=== PATIENT | male | born 1960 | race Caucasian/White ===

== ENCOUNTER 2019-04-17 18:49 | Emergency (ER) | payer SELFPAY ==
[~2019-04-17] VITALS: Ht 175.3 cm; Wt 95.0 kg
[2019-04-17 18:53] VITALS: Ht 175.3 cm; Wt 95.0 kg
[2019-04-17] MEDS ORDERED: KETOROLAC 30 MG INJ IM STA (18:58)
[2019-04-17] MEDS ORDERED: IBUP-1542 PO (18:59)
[2019-04-17] MEDS ORDERED: LORAZEPAM 1 MG TAB PO ONE (19:00)
[2019-04-17 19:47] VITALS: BP 139/82; PULSE 81; RESP 20
--- NOTE | 2019-04-17 22:55 | ERD ---
ER Documentation Chief Complaint Chief Complaint bib ra from street for shoulder pain, homeless, needs food HPI 58-year-old man admits to using methamphetamine and is agitated. He was brought in by EMS for complaints of agitation and transported here without further complications. Patient states he feels nervous after using methamphetamine and does have a drug abuse history but states he used many years ago and at that time used to use heroin. He denies suicidal homicidal ideation, no fevers or chills, no chest pain or shortness of breath. ROS All systems reviewed and are negative except as per history of present illness. Medications Home Meds Active Scripts Ibuprofen* (Motrin*) 600 Mg Tab, 600 MG PO Q8 PRN for PAIN AND/OR INFLAMMATION, #30 TAB Prov:BRAVO PATTON MD 04/17/19 Allergies Allergies: Coded Allergies: No Known Allergy (Unverified , 04/17/19) PMhx/Soc Medical and Surgical Hx: pt denies Medical Hx Hx Psychiatric Problems: Yes (depression, drug use ) Hx Alcohol Use: Yes Hx Substance Use: Yes (meth ) Hx Tobacco Use: No Smoking Status: Never smoker FmHx Family History: diabetes Physical Exam Vitals Vital Signs Date Temp Pulse Resp B/P (MAP) Pulse Ox O2 O2 Flow FiO2 Time Delivery Rate 04/17/19 98.9 81 20 139/82 100 Room Air 19:47 (101) 04/17/19 88 20 146/74 100 Room Air 19:29 (98) 04/17/19 98.9 91 20 144/81 100 Room Air 18:59 (102) 04/17/19 98.9 82 19 149/82 100 18:53 (104) Physical Exam Const: No acute distress, agitated, afebrile Resp: Clear to auscultation bilaterally Cardio: Regular rate and rhythm, no murmurs Skin: No petechiae or rashes, no lacerations or hematomas Back: No midline or flank tenderness Ext: No cyanosis, or edema, calves symmetrical Neur: Awake and alert x3, no focal deficits or facial asymmetry Psych: Anxious and agitated Results 24 hrs Current Medications Medications Dose Sig/Ran Start Time Status Last (Trade) Ordered Route PRN Stop Time Admin Dose Reason Admin Ketorolac 30 mg ONCE STAT 04/17/19 DC 04/17/19 Tromethamine IM 18:58 19:15 (Toradol) 04/17/19 18:59 Lorazepam 1 mg ONCE ONCE 04/17/19 DC 04/17/19 (Ativan) PO 19:00 19:16 04/17/19 19:01 Procedures/MDM For complaints of body aches I administered Toradol 30 mg IM x1 and also administered lorazepam 1 mg p.o. for agitation due to methamphetamine abuse. Differential diagnoses considered, included but not limited to acute coronary syndrome, pulmonary embolism, aortic dissection, abdominal aortic aneurysm, sepsis, stroke, meningitis, encephalitis, pneumonia, appendicitis, cholecystitis, bowel obstruction, pyelonephritis, nephrolithiasis, cystitis, as well as metabolic, hematologic, and electrolyte abnormalities. As well as abscess, cellulitis, fractures, and dislocations. Patient feels much better at this time, and vital signs are normal, symptoms have improved. I did give strict instructions to return to the ED if symptoms continue or worsen, patient will otherwise follow-up with primary care pavel redman. Patient understood instructions and agreed to plan. Disclaimer: Inadvertent spelling and grammatical errors are likely due to EHR/dictation software use and do not reflect on the overall quality of patient care. Also, please note that the electronic time recorded on this note does not necessarily reflect the actual time of the patient encounter. Departure Diagnosis: Primary Impression: Methamphetamine abuse Additional Impression: Acute anxiety Condition: Good Patient Instructions: Arthralgia, Drug Abuse BRAVO PATTON MD Apr 17, 2019 22:55
== END 2019-04-17 19:48 | disposition home or self-care (01) ==
LOC: E/R 18:49
DX: F15.10 Other stimulant abuse, uncomplicated (principal); F41.9 Anxiety disorder, unspecified; Z59.0 Homelessness
CPT/HCPCS: 96372; 99284; J1885

== ENCOUNTER 2019-06-11 22:49 | Emergency (ER) | payer OTHER ==
[~2019-06-11] VITALS: Ht 170.2 cm; Wt 100.0 kg
[~2019-06-11 22:49] MED LIST: IBUP-1542 PO
[2019-06-11 22:51] VITALS: Ht 170.2 cm; Wt 100.0 kg
[2019-06-12] MEDS ORDERED: LORAZEPAM 1 MG TAB PO ONE (05:30)
[2019-06-12] MEDS ORDERED: MAGNESIUM SULFATE 2 GM, MULTIVITAMINS 10 ML, THIAMINE 100 MG, FOLIC ACID 1 MG in SOD CH... IV STA (06:08)
--- NOTE | 2019-06-12 07:18 | ERD ---
ER Documentation Chief Complaint Chief Complaint Pt reports back pain and ETOH HPI This is a 58-year-old male with a past medical history of polysubstance abuse including heavy alcohol abuse and methamphetamine abuse, admissions to other hospitals for cellulitis and sepsis who is presenting to the emergency department today for reported exacerbated chronic back pain and alcohol intoxication. The patient admits to drinking beer last night into this morning. He is heavily intoxicated. He endorses falling last night landing on his buttock. He did not hit his head. The patient is sleepy but arousable. He did fall asleep multiple times midsentence during the history taking process. He is able to move all extremities spontaneously. History and physical is limited secondary to patient's clinical condition. History and physical is limited secondary to clinical condition. ROS Limited secondary to clinical condition. Medications Home Meds Active Scripts Ibuprofen* (Motrin*) 600 Mg Tab, 600 MG PO Q8 PRN for PAIN AND/OR INFLAMMATION, #30 TAB Prov:BRAVO PATTON MD 04/17/19 Allergies Allergies: Coded Allergies: No Known Allergy (Unverified , 04/17/19) PMhx/Soc Hx Psychiatric Problems: Yes (depression, drug use ) Hx Miscellaneous Medical Probl: Yes (OSTEOMYELITIS) Hx Alcohol Use: Yes Hx Substance Use: Yes (meth ) Hx Tobacco Use: No Smoking Status: Unknown if ever smoked FmHx Family History: No diabetes Physical Exam Vitals Vital Signs Date Temp Pulse Resp B/P (MAP) Pulse Ox O2 O2 Flow FiO2 Time Delivery Rate 06/12/19 98.7 78 17 153/107 99 Room Air 13:23 (122) 06/12/19 98.8 76 16 169/90 98 Room Air 10:22 (116) 06/12/19 98.8 76 16 173/91 99 Room Air 08:08 (118) 06/12/19 78 16 167/114 100 Room Air 05:26 (131) 06/11/19 98.1 78 16 140/84 97 22:51 (102) Physical Exam Const: No apparent distress, well-developed. Disheveled, unkempt Head: Normocephalic, Atraumatic Eyes: Normal Conjunctiva. Pupils equal, round and reactive to light ENT: Normal External Ears, Nose. Dry mucous membranes. Neck: Full range of motion. No meningismus. Resp: Clear to auscultation bilaterally, No wheezes, rales or rhonchi Cardio: Regular rate and rhythm. No murmurs, rubs or gallops Abd: Soft, non tender, non distended. Normal bowel sounds Skin: No petechiae or rashes Back: No midline tenderness. No CVA tenderness Ext: No cyanosis, or edema. No erythema or induration or warmth to the extremities. Dirt underneath the nails. Neur: Sleepy but arousable. No facial droop. Moves all extremities spontaneously and to command. Normal sensation. Result Diagram: 06/12/19 0751 06/12/19 0750 Results 24 hrs Laboratory Tests Test 06/12/19 07:50 06/12/19 07:51 Sodium Level 140 mmol/L Potassium Level 3.4 mmol/L Chloride Level 106 mmol/L Carbon Dioxide Level 28 mmol/L Anion Gap 6 Blood Urea Nitrogen 8 mg/dl Creatinine 0.51 mg/dl Est Glomerular Filtrat Rate mL/min > 60 mL/min Glucose Level 98 mg/dl Calcium Level 8.7 mg/dl Total Bilirubin 1.4 mg/dl Direct Bilirubin 0.00 mg/dl Indirect Bilirubin 1.4 mg/dl Aspartate Amino Transf (AST/SGOT) 35 IU/L Alanine Aminotransferase (ALT/SGPT) 25 IU/L Alkaline Phosphatase 93 IU/L Total Protein 7.9 g/dl Albumin 3.6 g/dl Globulin 4.30 g/dl Albumin/Globulin Ratio 0.83 Salicylates Level < 1.0 mg/dl Acetaminophen Level < 10.0 ug/ml Ethyl Alcohol Level < 10.0 mg/dl White Blood Count 3.2 10^3/ul Red Blood Count 4.34 10^6/ul Hemoglobin 13.5 g/dl Hematocrit 38.5 % Mean Corpuscular Volume 88.7 fl Mean Corpuscular Hemoglobin 31.1 pg Mean Corpuscular Hemoglobin Concent 35.1 g/dl Red Cell Distribution Width 17.1 % Platelet Count 103 10^3/UL Mean Platelet Volume 10.4 fl Immature Granulocytes % 0.300 % Neutrophils % 49.7 % Lymphocytes % 35.8 % Monocytes % 7.3 % Eosinophils % 6.3 % Basophils % 0.6 % Nucleated Red Blood Cells % 0.0 /100WBC Immature Granulocytes # 0.010 10^3/ul Neutrophils # 1.6 10^3/ul Lymphocytes # 1.1 10^3/ul Monocytes # 0.2 10^3/ul Eosinophils # 0.2 10^3/ul Basophils # 0.0 10^3/ul Nucleated Red Blood Cells # 0.0 10^3/ul Urine Color YELLOW Urine Clarity CLEAR Urine pH 7.0 Urine Specific [place] 1.010 Urine Ketones NEGATIVE mg/dL Urine Nitrite NEGATIVE mg/dL Urine Bilirubin NEGATIVE mg/dL Urine Urobilinogen 2+ mg/dL Urine Leukocyte Esterase NEGATIVE Casey/ul Urine Microscopic RBC 1 /HPF Urine Microscopic WBC 0 /HPF Urine Mucus FEW /HPF Urine Hemoglobin 1+ mg/dL Urine Glucose NEGATIVE mg/dL Urine Total Protein NEGATIVE mg/dl Urine Opiates Screen Negative Urine Barbiturates Negative Urine Amphetamines Screen Positive Urine Benzodiazepines Screen Negative Urine Cocaine Screen Negative Urine Cannabinoids Negative Current Medications Medications Dose Sig/Ran Start Time Status Last (Trade) Ordered Route PRN Stop Time Admin Dose Reason Admin Lorazepam 1 mg ONCE ONCE 06/12/19 DC 06/12/19 (Ativan) PO 05:30 05:11 06/12/19 05:31 Magnesium 1,015.2 ml Q2H2M STAT 06/12/19 DC 06/12/19 Sulfate 2 @ 500 mls/ IV 06:08 08:08 gm/ hr 06/12/19 08:09 Multivitamins 10 ml/Thiamine HCl 100 mg/Folic Acid 1 mg/Sodium Chloride Procedures/MDM MDM The patient's presentation warrants further investigation. Previous medical records, if available, were reviewed. LABS The patient's laboratory testing was obtained and reviewed. No emergent treatment was required unless described below. CBC: Mild not emergent pancytopenia, likely related to alcoholic liver disease. Chemistry: Mild hypokalemia, not emergent. No E/o severe acidosis or alkalosis or renal failure or liver disease or diabetic ketoacidosis Urine: No E/o acute infection or hematuria Tox: No E/o alcohol abuse. UDS is positive for methamphetamines. No E/o salicylate or acetaminophen use. TREATMENT/DISPOSITION The patient presents for intoxication. The patient will require observation until clinical sobriety. The patient has no signs of emergent or symptomatic anemia. The patient does not have any emergent electrolyte or metabolic emergencies. I have decrease suspicion for a thyroid disorder. The patient is not toxic appearing. I have decreased suspicion for an infectious etiology of symptoms. The patient does not have any cardiopulmonary complaints. The patient's pulse remains normal in the emergency department. I do not suspect arrhythmia. The patient is not hypoxic. The patient has no focal deficits. The neurologic exam is reassuring. I have decreased suspicion for cerebral ischemia. There was no evidence of trauma or injury. I have decreased suspicion for ICH. The patient does endorse exacerbated chronic low back pain which she requires a walker for. The patient is ambulatory with his walker currently, at [facility]. There is no evidence of emergent posttraumatic injury. Patient has no step-offs or deformities. I have low suspicion for acute fracture or listhesis. I do not suspect retroperitoneal bleeding. The patient is ambulatory and mobile without difficulty. The patient does not have any saddle anesthesia or any focal deficits. The patient has not been incontinent of urine or stool. The patient has not had any retention of urine or stool. I have low suspicion for spinal cord injury. There is no evidence of sciatica. The patient denies any abdominal pain. The patient does not have any palpable pulsatile masses in the abdomen. I have low suspicion for AAA or aortic aneurysm rupture or dissection. The patient does not have any flank tenderness. The patient does not have any urinary complaints or gross hematuria. I have low suspicion for nephrolithiasis as the etiology of symptoms. The patient does not have any left upper quadrant tenderness radiating to the back. I have low suspicion for pancreatitis. The patient does not have a history of IV drug use. The patient is afebrile. The patient does not have symptoms consistent with an epidural abscess or other infectious etiologies. There are no overlying skin changes. There is no evidence of cellulitis or abscess or another soft tissue infection to the back or extremities. The patient will be given a banana bag given his alcohol intoxication. OBSERVATION Time: At least 4 hours Family Hx: Patient could not provide Evaluation: Multiple exams showed improving symptoms and no evidence of decompensation. At time of discharge, the patient was alert and oriented and ambulatory. DISCHARGE Upon reevaluation of the patient, symptoms have improved. No emergent diagnoses were identified. At this time, I feel that the patient stable for discharge. The patient was instructed to follow-up with a primary care physician in 1-3 days. The patient will be given strict precautions with which to return to the emergency department. Prescriptions: None The patient's blood pressure was elevated at greater than 120/80 while in the emergency department. The patient was otherwise stable with no evidence of hypertensive urgency or emergency. The patient does not require admission for blood pressure control. I have discussed with the patient the risks of hypertension. I have instructed the patient to return to the ER for any new or worsening symptoms including chest pain, shortness of breath, headache, blurred vision, confusion, nausea, vomiting or LOC. I have advised the patient to follow up with the primary care physician for outpatient monitoring and treatment for hypertension in 1-3 days. DISCLAIMER Inadvertent spelling and grammatical errors are likely due to EHR/dictation software use and do not reflect on the overall quality of patient care. Note that the electronic time recorded on this note does not necessarily reflect the actual time of the patient encounter. Departure Diagnosis: Primary Impression: Low back pain Chronicity: chronic Back pain laterality: unspecified Sciatica presence: without sciatica Qualified Codes: M54.5 - Low back pain; G89.29 - Other chronic pain Additional Impressions: Fall from ground level Pancytopenia Alcoholic liver disease Methamphetamine abuse Alcohol abuse Hypokalemia Condition: Stable Patient Instructions: Addiction: Your Treatment Options, Alcohol Addiction, Back Pain (Acute Or Chronic), Understanding Methamphetamine Abuse and Addiction Additional Instructions: Thank you for for coming to [facility] for your care today. Please ask your nurse or provider if you have questions about your care today and do not leave until all your questions have been answered. Please use any medications given as directed and follow-up with your doctor (or the doctor you were referred to) in the next 1-3 days. If you do not have a primary care doctor you may follow up at the [facility] or [facility] (listed below). You may also use motrin and tylenol as needed for fever and/or pain unless instructed otherwise by your provider or nurse. Indications for more urgent follow-up have been discussed, but you may return to the Emergency Department at ANY time for any worrisome or worsening symptoms. If you have abdominal pain, please know that no test or exam you received is perfect and you should follow up within 8 hours for continued pain. If you had any imaging studies today, such as an X-Ray or CT Scan, these studies will be reviewed later by a radiologist. You will be called if there are important findings that were not identified today, so make sure the contact information you provided at registration is correct. If you received any narcotic pain control medicine today, such as Vicodin, Morphine or Dilaudid, your coordination and judgment may be affected for a num sujatha of hours. Please do not drive or operate heavy machinery, and you may want someone to assist you at home. If you were given a prescription for narcotic medication, be aware that it is very addictive- use sparingly and only if necessary. PLEASE SEEK FURTHER EVALUATION AND MANAGEMENT AT YOUR DOCTORS OFFICE WITHIN THE NEXT 1-3 DAYS. IT IS YOUR RESPONSIBILITY TO MAKE AN APPOINTMENT FOR FOLOW-UP C ARE. IF YOU HAVE A PRIMARY DOCTOR, PLEASE CALL THEIR OFFICE TO SCHEDULE AN APPOINTMENT FOR FOLLOW UP. IF YOU DO NOT HAVE A PRIMARY DOCTOR YOU CAN CALL OUR PHYSICIAN REFERRAL HOTLINE AT IF YOU CAN NOT AFFORD TO SEE A PHYSICIAN YOU CAN CHOSE FROM THE FOLLOWING [facility] OR COUNT INCLUDES THE [facility] CLINICS: [facility] [address] [facility] [address] [facility]. [facility] [address] [facility] [address] [facility] [address] [facility] [facility] [facility] [id number] [place] [address] [facility] [address] [place] [address] [facility] [place] [address] [place] [address] SRINIVAS ARMSTRONG MD Jun 12, 2019 07:18
[2019-06-12 13:23] VITALS: BP 153/107; PULSE 78; RESP 17
== END 2019-06-12 14:02 | disposition home or self-care (01) ==
LOC: E/R 22:49
DX: M54.5 Low back pain (principal); D61.818 Other pancytopenia; K70.9 Alcoholic liver disease, unspecified; F15.10 Other stimulant abuse, uncomplicated; F10.10 Alcohol abuse, uncomplicated; E87.6 Hypokalemia
CPT/HCPCS: 36415; 80053; 80307; 81001; 85025; 96374; J3411; J3475; J7030; Z7502; Z7610